=== PATIENT | female | born 1955 | race Caucasian/White ===

== ENCOUNTER → 2020-02-10 10:20 | Outpatient (CLI) | payer BC, SELFPAY ==
--- NOTE | ~2020-02-10 | MM_ITS ---
EXAMINATION: MM screening martine BI w ivanna HISTORY: Screening mammogram, history of right breast cancer TECHNIQUE: Craniocaudal and mediolateral oblique 3-D tomosynthesis images were obtained and synthetic 2-D images were generated. CAD analysis was submitted and interpreted. COMPARISON: 10/20/2018, 09/15/2017, 06/11/2016 BREAST PARENCHYMAL COMPOSITION: There are scattered areas of fibroglandular density. FINDINGS: There are stable lumpectomy changes in the right breast. There is no evidence of suspicious mass, calcification, or architectural distortion to suggest malignancy in either breast. There has b een no suspicious interval change. IMPRESSION: 1. No mammographic evidence of malignancy. 2. Recommend routine screening mammography in one year. BI-RADS Category 2: Benign finding(s). Reviewed, dictated and finalized at location A. E WASHER
== END ==
PROVIDERS: PCP Family Medicine; Visit Provider Nurse Practitioner Obstetrics & Gynecology
DX: Z12.31 Encounter for screening mammogram for malignant neoplasm of breast (principal)
CPT/HCPCS: 77063; 77067

== ENCOUNTER → 2021-04-20 13:21 | Outpatient (CLI) | payer MEDICARE, SELFPAY ==
--- NOTE | ~2021-04-20 | MM_ITS ---
EXAMINATION: MM screening martine BI w ivanna HISTORY: Screening mammogram TECHNIQUE: Craniocaudal and mediolateral oblique 3-D tomosynthesis images were obtained and synthetic 2-D images were generated. CAD analysis was submitted and interpreted. COMPARISON: 02/10/2020, 10/16/2018, 09/16/2017 bilateral screening mammogram examinations BREAST PARENCHYMAL COMPOSITION: There are scattered areas of fibroglandular density. FINDINGS: There are surgical clips in the right axillary area. There is a history of partial right ma stectomy and radiotherapy for right breast cancer. Multiple benign calcifications are again noted primarily on the right. There is no evidence of suspicious mass, calcification, or architectural distortion to suggest malign willow in either breast. There has been no suspicious interval change. IMPRESSION: 1. No mammographic evidence of malignancy. 2. Recommend routine screening mammography in one year. BI-RADS Category 2: Benign finding(s). Reviewed, dictated and finalized at location A. TIC FABRICATOR
== END ==
PROVIDERS: PCP Family Medicine; Visit Provider Nurse Practitioner Obstetrics & Gynecology
DX: Z12.31 Encounter for screening mammogram for malignant neoplasm of breast (principal)
CPT/HCPCS: 77063; 77067

== ENCOUNTER → 2022-09-15 12:37 | Outpatient (CLI) | payer MEDICARE, SELFPAY ==
--- NOTE | ~2022-09-15 | MM_ITS ---
EXAMINATION: MM screening martine BI w ivanna HISTORY: Screening TECHNIQUE: Craniocaudal and mediolateral oblique 3-D tomosynthesis images were obtained and synthetic 2-D images were generated. CAD analysis was submitted and interpreted. COMPARISON: Comparison to multiple prior studies sequentially, with oldest reviewed study dated 03/13. BREAST PARENCHYMAL COMPOSITION: There are scattered areas of fibroglandular density. FINDINGS: There is no evidence of suspicious mass, calcification, or architectural distortion to sugg est malignancy in either breast. There has been no suspicious interval change. IMPRESSION: 1. No mammographic evidence of malignancy. 2. Recommend routine screening mammography in one year. BI-RADS Category 1: Negative Reviewed, dictated and finalized at location A.
== END ==
PROVIDERS: PCP Family Medicine; Visit Provider Nurse Practitioner Obstetrics & Gynecology
DX: Z12.31 Encounter for screening mammogram for malignant neoplasm of breast (principal)
CPT/HCPCS: 77063; 77067

== ENCOUNTER 2023-08-29 07:19 | Emergency (ER) | payer MEDICARE, SELFPAY ==
[2023-08-29] VITALS (12 sets, daily range): BP systolic 151–181; BP diastolic 78–97; PULSE 61–99; RESP 13–26; O2SAT 94–100
[2023-08-29] MEDS: ONDANSETRON INJ 4 MG/2 ML VIAL IV PUSH (08:03)
[2023-08-29] MEDS: MECLIZINE HCL 25 MG TABLET PO (08:03)
[2023-08-29] MEDS: SCOPOLAMINE 1 MG PATCH 1 PATCH TRANSDERM (08:04)
--- NOTE | 2023-08-29 08:11 | ED.GENADULT ---
HPI - General Adult General Chief complaint: Dizziness Stated complaint: dizzy, N/V, diaphoretic Time Seen by Provider: 08/29/23 07:26 History of Present Illness HPI narrative: This is a 67-year-old female with history of vertigo presenting with vertigo. Patient tried to go to bed last night @ 10pm and had a brief episode intense vertigo when she tried to lay down. She went to sleep and when she woke up she was still having vertigo that is associated with nausea and vomiting. No sxs between episodes. No double vision dysarthria dysphagia or loss of coordination. No facial droop or limb weakness. Related Data Allergies Allergy/AdvReac Type Severity Reaction Status Date / Time latex Allergy Severe RASH Verified 08/29/23 07:51 Exam Narrative: APPEARANCE: No apparent distress. Head: atraumatic. TMs are normal bilaterally EYES: EOMI, NOSE: Atraumatic NECK: Trachea midline RESPIRATORY: No increased rate of breathing CARDIOVASCULAR: RRR, ABDOMINAL: Non-distended MUSCULOSKELETAl: No obvious deformities NEURO: Alert. Cranial nerves 2-12 grossly intact. Sensation light touch, motor function cerebellar function intact for 4 extremities. Gait exam was normal. SKIN:: Warm, dry. Normal color PSYCHIATRIC: Normal affect Course Vital Signs Vital signs: Vital Signs Pulse Rate 99 08/29/23 07:26 Respiratory Rate 19 08/29/23 07:26 Pulse Oximetry 95 08/29/23 07:26 Pulse Rate 83 08/29/23 07:45 Respiratory Rate 15 08/29/23 07:45 Blood Pressure 181/97 H 08/29/23 07:27 Pulse Oximetry 94 08/29/23 07:45 Medical Decision Making [facility] Narrative Medical decision making narrative: -Course: 59-year-old female presenting with vertigo symptoms. Vertigo is episodic and triggerable w/ head movements. Patient given meclizine scopolamine and Zofran. very low concern for stroke. On re-evaluation patient's symptoms had improved drastically but she was still slightly unsteady. Patient is requesting breakfast and a another round of medication. Patient given a meal and Reglan. On re-evaluation patient has continued to improve. She is comfortable going home at this time. Patient discharged. -DDX includes but is not limited to: Posterior stroke, acute vestibular syndrome, spontaneous episodic is to be syndrome, triggerable episodic history of present -Co-morbidities complicating care: vertigo -Hx from independent Sources: daughter @bedside -Independent interpretation of studies: CBC normal. Metabolic panel showed low potassium which was repleted orally. Possibly due to GI losses from diarrhea. -Interventions: 2 L normal saline, 40 mEq potassium, meclizine, scopolamine, Reglan -Shared decision making / Disposition: discharged -RX meclizine, scopolamine Vital Signs Vital Signs: Vital Signs Pulse Rate 99 08/29/23 07:26 Respiratory Rate 19 08/29/23 07:26 Pulse Oximetry 95 08/29/23 07:26 Pulse Rate 83 08/29/23 07:45 Respiratory Rate 15 08/29/23 07:45 Blood Pressure 181/97 H 08/29/23 07:27 Pulse Oximetry 94 08/29/23 07:45 Lab Data 08/29/23 08:03 08/29/23 08:03 Labs: Lab Results 08/29/23 Range/Units 08:03 WBC 9.6 (4.5-10.0) K/mm3 RBC 4.29 (4.2-5.4) M/mm3 Hgb 14.3 (12.0-15.0) g/dL Hct 41.8 (37.0-47.0) % MCV 97.4 (80-100) fl MCH 33.3 (26-34) pg MCHC 34.2 (32-36) g/dl RDW 12.4 (11.5-14.5) % Plt Count 271 (150-375) k/mm3 MPV 10.4 (7.4-10.4) fl Immature Gran % (Auto) 0.4 (0-0.5) % Neut % (Auto) 51.1 (45.5-73.1) % Lymph % (Auto) 33.8 (18.3-44.2) % Charles % (Auto) 8.5 (2.6-8.5) % Eos % (Auto) 5.3 H (0-4.4) % Baso % (Auto) 0.9 (0.2-1.2) % Lymph # (Auto) 3.25 H (0.9-3.2) K/mm3 Charles # (Auto) 0.8 H (0.1-0.6) K/mm3 Eos # (Auto) 0.5 H (0-0.3) K/mm3 Baso # (Auto) 0.1 (0.0-0.1) K/mm3 Abs Immat Gran (auto) 0.04 H (0.00-0.031) K/mm3 Absolute Neuts (auto) 4.9 (1.3-6.7) K/m
[2023-08-29 08:14] LABS: Basophils Absolute Auto 0.1 K/mm3 (0.0-0.1); Basophils Percent Auto 0.9 % (0.2-1.2); Eosinophils Absolute Auto 0.5 K/mm3 (0-0.3); Eosinophils Percent Auto 5.3 % (0-4.4); Hematocrit 41.8 % (37.0-47.0); Hemoglobin 14.3 g/dL (12.0-15.0); Immature Granulocyte Absolute 0.04 K/mm3 (0.00-0.031); Immature Granulocyte Percent A 0.4 % (0-0.5); Lymphocytes Absolute Auto 3.25 K/mm3 (0.9-3.2); Lymphocytes Percent Auto 33.8 % (18.3-44.2); Mean Corpuscular HGB Conc 34.2 g/dl (32-36); Mean Corpuscular Hemoglobin 33.3 pg (26-34); Mean Corpuscular Volume 97.4 fl (80-100); Mean Platelet Volume 10.4 fl (7.4-10.4); Monocytes Absolute Auto 0.8 K/mm3 (0.1-0.6); Monocytes Percent Auto 8.5 % (2.6-8.5); Neutrophils Absolute Auto 4.9 K/mm3 (1.3-6.7); Neutrophils Percent Auto 51.1 % (45.5-73.1); Platelet Count Result 271 k/mm3 (150-375); Red Blood Count 4.29 M/mm3 (4.2-5.4); Red Cell Distribution Width 12.4 % (11.5-14.5); White Blood Count 9.6 K/mm3 (4.5-10.0)
[2023-08-29 08:24] LABS: Alanine Aminotransferase 20 U/L (6-35); Albumin Level 4.7 g/dL (3.5-5.1); Alkaline Phosphatase 84 U/L (38-126); Anion Gap 13 mmol/L (4-12); Aspartate Amino Transferase 26 U/L (14-36); Bilirubin,Total 0.9 mg/dL (0.2-1.3); Blood Urea Nitrogen 23 mg/dL (7-17); Calcium 9.6 mg/dL (8.4-10.2); Carbon Dioxide 19 mmol/L (22-30); Chloride 111 mmol/L (98-107); Estimated CRCL calculation 72 ml/min; Estimated Glomerular Filt Rate > 60; Glucose 178 mg/dL (65-110); Potassium 2.9 mmol/L (3.4-5.0); Sodium 143 mmol/L (137-145)
[2023-08-29] MEDS: SODIUM CHLORIDE 0.9% IV 2,000 ML 999 ML IV CONT (08:41)
[2023-08-29] MEDS: POTASSIUM CHLORIDE 20 MEQ PACKET (FOR LIQUID) 40 MEQ PO (09:26)
--- NOTE | 2023-08-29 10:39 | PC.NURSE ---
food tray ordered
[2023-08-29] MEDS: METOCLOPRAMIDE HCL INJ 10 MG/2 ML VIAL IV PUSH (10:54)
== END 2023-08-29 12:00 | disposition home or self-care (01) ==
PROVIDERS: Emergency Provider Emergency Medicine; PCP Family Medicine
DX: R42 Dizziness and giddiness (principal)
CPT/HCPCS: 36415; 80053; 85025; 96361; 96374; 96375; 99284; A9270; J2405; J2765; J7030

== ENCOUNTER 2024-01-18 07:49 | Outpatient (CLI) | payer MEDICARE, SELFPAY ==
--- NOTE | ~2024-01-18 | MMUS_ITS ---
EXAMINATION: MM diagnostic martine BI w ivanna, US breast RT limited HISTORY: Right breast mass TECHNIQUE: 3-D tomosynthesis images of the breasts were performed and synthetic 2-D images were gener ated. CAD analysis was submitted and interpreted. High resolution limited right breast ultrasound was performed. COMPARISON: 09/15/2022, 04/20/2021, 02/10/2020 BREAST PARENCHYMAL COMPOSITION:Not Dense. The breasts are almost entirely fatty FINDINGS: MAMMOGRAPHIC FINDINGS: Parenchymal pattern of the breasts is unchanged. Stable benign calcifications in the anterior right b reast. Stable probable postoperative change in the right breast. ULTRASOUND: At the 2:00 position right breast, 8 cm from the nipple, there is a 1.2 x 0.9 x 0.3 cm parallel, circ umscribed probable cyst. There is an adjacent 0.6 x 0.3 x 0.5 cm similar-appearing probable cyst. The re is an additional probable 3 mm cyst in this region as well. IMPRESSION: No evidence for malignancy. Stable mammographic examination. Subcentimeter simple cysts in the right breast, as above. BI-RADS Category 2: Benign finding(s). Reviewed, dictated and finalized at location M. ITUTIONAL RESEARCH DIRECTOR IMPRESSION: No evidence for malignancy. Stable mammographic examination. Subcentimeter simple cysts in the right breast, as above. BI-RADS Category 2: Benign finding(s).
== END 2024-01-18 07:50 | disposition home or self-care (01) ==
LOC: MICIMG 07:50
PROVIDERS: PCP Family Medicine; Visit Provider Family Medicine
DX: N60.01 Solitary cyst of right breast (principal)
CPT/HCPCS: 76642; 77062; 77066; G0279

== ENCOUNTER 2024-08-01 08:46 | Outpatient (CLI) | payer MEDICARE, SELFPAY ==
--- NOTE | ~2024-08-01 | DEXA_ITS ---
Bone Density Report Name: PHONG FRAUSTO Age: 68 Sex: Female Ethnicity: White Date of : 1955 Indication: postmenopausal; screening for osteoporosis; height loss; Referring Provider: Glory, Alexey Martínez Study: Bone densitometry was performed. Exam Date: August 01, 2024 Accession number: [id number] Bone Density: Region BMD T-score Z-score Classification AP Spine(L1-L4) 1.001 -0.4 1.7 Normal Femoral Neck (Left) 0.803 -0.4 1.4 Normal Total Hip (Left) 0.976 0.3 1.8 Normal Femoral Neck (Right) 0.678 -1.5 0.2 Osteopenia Total Hip (Right) 0.861 -0.7 0.8 Normal Total Hip Mean 0.918 -0.2 1.3 Normal World Health Organization criteria for BMD impression classify patients as: Normal (T-score at or above -1.0), Osteopenia (T-score between -1.0 and -2.5), or Osteoporosis (T-score at or below -2.5). 10-year Fracture Risk(1): Major Osteoporotic Fracture 8.6% Hip Fracture 1.1% Reported Risk Factors: [place] (), Neck BMD=0.678, BMI=41.5 (1) FRAX(R) Version 3.08. Fracture probability calculated for an untreated patient. Fracture probability may be lower if the patient has received treatment. Previous Exams: -- Region Exam Age BMD T-score BMD Change BMD Change Date g/cm2 vs Baseline vs Previous -- AP Spine (L1-L4) 08/01/2024 68 1.001 -0.4 0.4% 2.9%# 12/03/2018 63 0.973 -0.7 -2.4%# 3.0%* 02/28/2014 58 0.945 -0.9 -5.2%# -4.1%* 02/18/2012 56 0.985 -0.6 -1.2%# -1.6% 02/12/2010 54 1.001 -0.4 0.4%# -1.1% 09/15/2008 52 1.012 -0.3 1.5%# 1.5%# 09/01/2006 50 0.997 -0.5 Total Hip(Left) 08/01/2024 68 0.976 0.3 0.5% -3.2%# 12/03/2018 63 1.008 0.5 3.9%# 5.5%* 02/28/2014 58 0.956 0.1 -1.5%# 0.8% 02/18/2012 56 0.948 0.1 -2.3%# -7.9%* 02/12/2010 54 1.030 0.7 6.1%# -0.6% 09/15/2008 52 1.036 0.8 6.7%# 6.7%# 09/01/2006 50 0.970 0.2 Total Hip(Right) 08/01/2024 68 0.861 -0.7 -7.1%* -5.2%# 12/03/2018 63 0.908 -0.3 -2.0%# 7.6%* 02/28/2014 58 0.844 -0.8 -9.0%# -5.6%* 02/18/2012 56 0.894 -0.4 -3.5%# -6.1%* 02/12/2010 54 0.952 0.1 2.8%# -1.9% 09/15/2008 52 0.971 0.2 4.8%# 4.8%# 09/01/2006 50 0.927 -0.1 -- *Denotes significance at 95% confidence level, LSC for AP Spine = 0.022 g/cm2, LSC for Total Hip = 0.027 g/cm2 # Denotes dissimilar scan types or analysis methods Clinical Information Provided by Patient: Has used the following medications: Vitamin D, Calcium Patient maximum height was 65 Menopause Age: 53 No regular weight bearing exercise Does not regularly consume dairy products Drinks caffeinated beverages Onset of menses at age 12 Number of children 0 Impression: The patient has low bone mass, based on the Right Femoral Neck T-score. The patient has an estimated ten-year risk of hip fracture of 1.1% and an estimated ten-year risk of major fracture of 8.6%, based on the WHO FRAX algorithm. Unable to evaluate interval change due to the use of different scan modes. Discussion: BONE DENSITY IS LOW AT ONE OR MORE SKELETAL SITES. This patient's lowest T-score is low at one or more skeletal sites. It meets the World Health Organization's (WHO) criteria for ?low bone mass? (T-score between -1.0 and -2.5). The patient's 10-year risk of fracture as calculated by FRAX is less than the threshold where pharmacological therapy is recommended by the National Osteoporosis Foundation (NOF). However, all treatment decisions require clinical judgment and consideration of individual patient factors, including patient preferences, comorbidities, previous drug use, risk factors not captured in the FRAX model (e.g., frailty, falls, vitamin D deficiency, increased bone turnover, interval significant decline in bone density) and possible under or overestimation of fracture risk by FRAX. The patient should follow a healthful lifestyle (good nutrition with adequate calcium and vitamin D, and appropriate weight-bearing exercise). Follow-Up: Consider repeating this study in 2 to 3 years to reassess this patient's status, or sooner if there is some new clinical indication. Reported by: IRLANDA on 08/01/2024 9:13:00 AM. Reviewed, dictated and finalized at location A.
== END 2024-08-01 08:47 | disposition home or self-care (01) ==
LOC: MICIMG 08:48
PROVIDERS: PCP Family Medicine; Visit Provider Family Medicine
DX: M85.851 Other specified disorders of bone density and structure, right thigh (principal); Z78.0 Asymptomatic menopausal state
CPT/HCPCS: 77080